=== PATIENT | male | born 1965 | race African-American/Black ===

== ENCOUNTER 2019-08-12 23:29 | Emergency (ER) | payer OTHER, SELFPAY ==
[2019-08-12 23:35] VITALS: BP 131/96; PULSE 75; RESP 16; TEMP 36.4; O2SAT 93; BMI 30.8
--- NOTE | 2019-08-12 23:44 | PC.NURSE ---
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 Patient states he needs a knee replacement
--- NOTE | 2019-08-12 23:49 | ED.LOWEXIN ---
HPI - Extremity Injury (Lower) General Chief Complaint: Extremity Injury, Lower Stated Complaint: right knee stopped working/locked up Time Seen by Provider: 08/12/19 23:45 Source: patient Mode of arrival: Ambulatory History of Present Illness HPI Narrative: 54-year-old gentleman who has a long history of multiple knee surgeries on the right knee as well as severe osteoarthritis of the knee. Over the last weeks he has been putting in longer than typical hours at work which involves quite a bit of walking. The knee has been bothering him more and over the past few days has been more swollen. Tonight he finds that he simply cannot bend it. He has had episodes like this previously when some of the bone on bone erosion has caused issues. He finds typically that resting for a few days will allow the inflammation to go down enough for whatever foreign body is preventing flexion to settle out and he again is able to walk relatively normally. He is requesting help with work note as well as orthopedic referral. Related Data Allergies Allergy/AdvReac Type Severity Reaction Status Date / Time vancomycin Allergy Severe Swelling Verified 08/12/19 23:40 of Lip/Tongue/Throat Review of Systems Review of Systems Narrative: Denies ? fever ? cough ? cold ? chills ? chest pain ? dyspnea ? orthopnea ? wheezing ? abdominal pain ? change to bowel or bladder habits ? nausea vomiting ? skin changes ? rashes Patient History tobacco type: smokeless tobacco Substance Use Type: does not use Exam Narrative Exam Narrative: He has difficulty walking in because his knee is quite literally unable to bend. He can flex his right knee no more than 5?. The right knee does have a moderate effusion is not tender to the touch and no warmth or erythema. He is neurovascularly intact distally. There is no evidence of respiratory distress He is awake, alert, appropriate and able to speak in full sentences as well as give a complete and coherent history. Initial Vital Signs Initial Vital Signs: Vital Signs Temperature 97.6 F 08/12/19 23:35 Pulse Rate 75 08/12/19 23:35 Respiratory Rate 16 08/12/19 23:35 Blood Pressure 131/96 H 08/12/19 23:35 Pulse Oximetry 93 08/12/19 23:35 Course Vital Signs Vital signs: Vital Signs - 8 hr 08/12/19 23:35 08/13/19 00:19 Temperature 97.6 F Pulse Rate 75 88 Respiratory Rate 16 14 Blood Pressure 131/96 H 131/78 Pulse Oximetry 93 99 MDM - Extremity Injury (Lower) Medical Records Attestation: I reviewed the patient's medical records. [facility] Narrative Medical decision making narrative: Long history of knee pain and problems with known severe degenerative arthritis and occasional episodes with foreign body causing his knee to lock up. There is no evidence of acute infection. Will be given an off-work note for 3 days. Have suggested that he follow-up with his primary care physician who has documented the long course of the knee degeneration to refer him to an orthopedic surgeon for consideration of knee replacement surgery. He is not interested any pain medications at this time and has stated that splinting and crutches have not helped in the past and he does have access to these at home. He is safe for home discharge at this time Discharge Plan Departure Patient Disposition: Home Clinical Impression: Knee Injury Qualifiers: Encounter type: initial encounter Laterality: right Qualified Code(s): S89.91XA - Unspecified injury of right lower leg, initial encounter Discharge Date/Time: 08/13/19 00:21 Instructions: DI for Knee Pain Activity Restrictions/Additional Instructions: Thank you for coming in today I am sorry that your knee is more irritated and your unable to bend at this time. I appreciate all of the issues that you have been through and agree with your assessment that you do simply need to rest. I would recommend that you follow-up with your primary care physician to help you initiate a referral down to the orthopedist of choice so the can move forward with planning a knee replacement surgery. I wish you the best and I hope it heals nicely. Stand Alone Forms: Work Release Note
[2019-08-13 00:19] VITALS: BP 131/78; PULSE 88; RESP 14; O2SAT 99
== END 2019-08-13 00:21 | disposition home or self-care (01) ==
PROVIDERS: Emergency Provider Emergency Medicine
DX: S89.91XA Unspecified injury of right lower leg, initial encounter (principal); M17.11 Unilateral primary osteoarthritis, right knee
CPT/HCPCS: 99281

== ENCOUNTER → 2019-09-09 10:34 | Outpatient (CLI) | payer OTHER, SELFPAY ==
[2019-09-09 13:41] LABS: Influenza A - CEPHEID Flu A NEGATIVE (NEGATIVE); Influenza B - CEPHEID Flu B NEGATIVE (NEGATIVE)
[2019-09-13 19:59] LABS: COVID19 Sendout Not Detected (Not Detected)
== END ==
PROVIDERS: Visit Provider Physician Assistant
DX: R06.02 Shortness of breath (principal)
CPT/HCPCS: 87502; 87635

== ENCOUNTER → 2020-09-10 14:03 | Outpatient (CLI) | payer OTHER, SELFPAY ==
[2020-09-10] MEDS: COVID-19 VACC #1, MRNA(MOD) 100 MCG/0.5 ML VIAL IM (14:08)
== END ==
PROVIDERS: Referring Provider Internal Medicine; Visit Provider Internal Medicine
DX: Z23 Encounter for immunization (principal)
CPT/HCPCS: 0011A; 91301

== ENCOUNTER → 2020-10-09 15:50 | Outpatient (CLI) | payer OTHER, SELFPAY ==
[2020-10-09] MEDS: COVID-19 VACC #2, MRNA(MOD) 100 MCG/0.5 ML VIAL IM (16:00)
== END ==
PROVIDERS: Visit Provider Internal Medicine
DX: Z23 Encounter for immunization (principal)
CPT/HCPCS: 0012A; 91301